=== PATIENT | female | born 1990 | race Caucasian/White ===

== ENCOUNTER 2019-05-21 13:22 | Outpatient (CLI) | payer OTHER ==
[2019-05-21 13:55] LABS: BHCG - Serum Negative (NEGATIVE); Pregs Control Background? CLEAR/WHITE (CLR/WHITE); Pregs Control Bar Appear? YES (CONTROL BAR)
== END 2019-05-21 13:23 | disposition home or self-care (01) ==
LOC: LABBT 13:22
PROVIDERS: ATTEND Orthopaedic Surgery
DX: Z01.812 Encounter for preprocedural laboratory examination (principal); S62.102A Fracture of unspecified carpal bone, left wrist, initial encounter for closed fracture
CPT/HCPCS: 84703

== ENCOUNTER → 2019-05-23 | Day surgery (SDC) | payer OTHER ==
[2019-05-21 13:34] VITALS: BMI 25.0
[~2019-05-23] MED LIST: Bupivacaine HCl 0.5%/Epinephrine 1:200,000/PF 30 ml Vial ONE; Dexamethasone 20 MG/5 ML VIAL ONE; Fentanyl 100 MCG/2 ML VIAL ONE; Lidocaine 1% PF 5 ML VIAL ONE; Midazolam HCl 2 mg/2 ml Vial ONE; Ondansetron PF 4 MG/2 ML Vial ONE; PROPOFOL 200 MG/20 ML VIAL ONE; Ropivacaine 0.2% HCl/PF (40 MG/20 ML VIAL) ONE; ePHEDrine 50 MG/ML VIAL ONE
--- NOTE | 2019-05-23 13:55 | OP ---
DATE OF PROCEDURE: 05/23/2019 PREOPERATIVE DIAGNOSIS: Displaced intra-articular fracture, left distal radius. POSTOPERATIVE DIAGNOSIS: Displaced intra-articular fracture, left distal radius. PROCEDURE PERFORMED: Closed reduction and pinning, left wrist. ANESTHESIA: General. ESTIMATED BLOOD LOSS: Minimal. SPECIMENS: None. DRAINS: None. COMPLICATIONS: None. DESCRIPTION OF PROCEDURE: The patient was taken to the operating room, where general anesthesia was induced. She received Ancef preoperatively. I did a provisional reduction and checked under C-arm, reduction was excellent with closed means before we prepped and draped the arm. Once again repeated the reduction maneuver and checked on a biplane fluoroscopy and placed two 0.062 K-wires across the radial styloid into the diaphysis of the radius. Checked reduction on biplane fluoroscopy. Once again, this appears excellent. Sterile dressing was applied and a sugar-tong splint was applied. Job ID: [id number]
--- NOTE | 2019-05-25 19:47 | RAD ---
2 intraoperative images of the left wrist 05/25/2019 COMPARISON: None HISTORY: ORIF FINDINGS: There are 2 percutaneous screws traversing the radial styloid/proximal radial shaft. No dalia dence for dislocation. There is anatomic alignment at the postoperative site IMPRESSION: Intraoperative imaging as above.
== END ==
LOC: SDC 07:31
PROVIDERS: ATTEND Orthopaedic Surgery
PROC: 0PSJ34Z Reposition Left Radius with Internal Fixation Device, Percutaneous Approach (ICD-10-PCS; principal; 2019-05-23)
PROC: 3E0T3BZ Introduction of Anesthetic Agent into Peripheral Nerves and Plexi, Percutaneous Approach (ICD-10-PCS; principal; 2019-05-23)
DX: S52.572A Other intraarticular fracture of lower end of left radius, initial encounter for closed fracture (principal); G89.18 Other acute postprocedural pain; V80.010A Animal-rider injured by fall from or being thrown from horse in noncollision accident, initial encounter
CPT/HCPCS: 76000; J0690; J2250; J3010